=== PATIENT | male | born 1950 | race Caucasian/White ===

== ENCOUNTER 2017-03-27 05:40 | Observation (INO) | payer MEDICARE, BC ==
[2017-03-23 11:31] LABS: HEMOGLOBIN 14.4 g/dL (13.6-17.8)
[2017-03-23 11:42] LABS: BUN (BLOOD UREA NITROGEN) 17 MG/DL (6-23); CALCIUM, SERUM 9.2 MG/DL (8.5-10.4); CHLORIDE, SERUM 111 MMOL/L (96-112); CO2 (CARBON DIOXIDE) 26 MMOL/L (24-34); GFR AFRICAN AMERICAN 101 ML/MIN (>=60); GFR NON AFRICAN AMERICAN 87 ML/MIN (>=60); GLUCOSE, SERUM 103 MG/DL (60-99); POTASSIUM, SERUM 4.1 MMOL/L (3.5-5.3); SODIUM, SERUM 143 MMOL/L (135-148)
[2017-03-25 17:06] LABS: BASOPHILS ABSOLUTE 0.07 10/3/uL (0.0-0.16); EOSINOPHILS 2.8 %; EOSINOPHILS ABSOLUTE 0.19 10/3/uL (0.0-0.53); IMMATURE GRANULOCYTES 0.6 %; IMMATURE GRANULOCYTES ABSOLUTE 0.04 10/3/uL (0.0-0.11); LYMPHOCYTES 41.3 %; LYMPHOCYTES ABSOLUTE 2.85 10/3/uL (0.67-4.30); MEAN CORPUS HGB CONC 32.1 g/dL (32.0-36.0); MEAN CORPUSCULAR HEMOGLOB 28.7 pg (26.0-34.0); MEAN CORPUSCULAR VOLUME 89.2 fL (80-100); MONOCYTES 9.6 %; MONOCYTES ABSOLUTE 0.66 10/3/uL (0.21-1.20); NEUTROPHILS 44.7 %; NEUTROPHILS ABSOLUTE 3.09 10/3/uL (2.02-8.40); PLATELET COUNT 191 10/3/uL (150-400); RBC DISTRIBUTION WIDTH 15.4 % (12.0-16.0); RED CELL COUNT 5.02 10/6/uL (4.7-6.1); WHITE BLOOD CELLS 6.9 10/3/uL (4.5-10.5)
[2017-03-25 17:08] LABS: MANUAL DIFF NO %
--- NOTE | ~2017-03-27 | OP ---
Record Of Operation [facility] [address] [place] [place]. [address] NAME: TYRA ELAM : 46 STATUS : DIS Anna PAT#: [id number] AGE: 67 ADM/REG DATE : 03/27/17 MR#: [id number] REPORT SERV DATE: 03/30/17 DICTATED BY: ROCHELLE MARIA II DATE: 03/30/17 REPORT STATUS : Draft TRANSCRIBED BY: MODL DATE: 03/30/17 DATE OF PROCEDURE: 03/27/2017 PREOPERATIVE DIAGNOSES: 1. Lumbar stenosis, recurrent with remote history of lumbar laminectomy, multilevel. 2. Right L5-S1 herniated nucleus pulposus. 3. L3-5 stenosis. POSTOPERATIVE DIAGNOSES: 1. Lumbar stenosis, recurrent with remote history of lumbar laminectomy, multilevel. 2. Right L5-S1 herniated nucleus pulposus. 3. L3-5 stenosis. PROCEDURES: 1. Lumbar laminectomy, L3-4, L4-5 (revision). 2. Right L5-S1 revision and microdiskectomy. 3. Use of the microscope and stereotactic spinal imaging. SURGEON: Rochelle Maria M.D. FLUIDS REPLACED: 1300 mL LR. ESTIMATED BLOOD LOSS: 35 mL. DRAINS: One drain. COMPLICATIONS: None. ANTIBIOTIC: Preoperatively. PREOPERATIVE HISTORY: This is a friendly 67-year-old gentleman, who reports significant radiating pain into the right buttock, thigh, and occasionally below the leg. We discussed the pros and cons of surgery. He had an L3 to S1 surgery previously through a midline approach. We discussed the risks and benefits of the surgery, he wished to proceed. DESCRIPTION OF PROCEDURE: After informed consent was obtained, the patient was brought to the operating room at his request and general anesthesia achieved. He was placed in the prone position, and the back was prepped and draped in a sterile fashion. The stereotactic spinal pin was placed into the iliac crest on the left followed by completion of the intraoperative CT scan. Stereotactic guidance was then used throughout the remainder of the case. Next, a minimally invasive incision was performed on the right and the quadrant retractor placed. At this point, the microscope was brought into place and under microscopic visualization, the laminectomy was performed at L3-4. Again, the patient had a midline approach previously with a hemilaminectomy having been performed. There was some scarring Record Of Operation [facility] [address] [place]. [address] NAME: TYRA ELAM : 46 STATUS : DIS Anna PAT#: [id number] AGE: 67 ADM/REG DATE : 03/27/17 MR#: [id number] REPORT SERV DATE: 03/30/17 DICTATED BY: ROCHELLE MARIA II DATE: 03/30/17 REPORT STATUS : Draft TRANSCRIBED BY: MODL DATE: 03/30/17 in the midline. The revision decompression was now further performed with the high-speed bur and the Kerrison rongeurs and the curettes. The portions of the right facet were now removed approximating 30% of the joint. This allowed decompression of the L4 nerve root in the lateral recess. The L3 nerve root in the foraminal zone appeared to be without significant impingement. Next, we worked down to the L4-5 level where upon a similar procedure was performed. The spinal laminar junction was once again taken down and the decompression performed with the curettes and the Kerrison rongeurs. The L5 nerve root was identified as being significantly compressed in the lateral recess. This compression was now alleviated with removal of a portion of the facet. The L4 nerve root in the foraminal zone was without significant impingement. At this point, the right-sided laminotomy was performed at L5-S1. The ligamentum flavum was now removed and the S1 nerve root identified. There was a large disk osteophyte complex noted. We were unable to remove the majority of this as it was largely calcified. However, the laminotomy alone had now allowed the S1 nerve root to dorsally migrate. Irrigation was now performed followed by confirmation of hemostasis. A deep drain was placed secondary to mild cancellous bone bleeding. Standard closure was performed, and the patient was then extubated and transferred to PACU in stable condition. MARCUS/NAHUN Rochelle Maria II, M.D. / [id number] CC: Rosy Squires II, M.D. Ravi Chander, M.D. Dennis C. Ford MD
[~2017-03-27 05:40] MED LIST: ALLEGRA180 PO; C1 PO; D 5000 PO; FLOMAX4 PO; KLONO5 PO; LOP25 PO; MIRALAX POWDER1 PKT PO; NEUR800 PO; OXYCOD PO; PROAIR HFA INH; PROSCAR5 PO; TOPAMAX100 PO; VITAMIN D2000 UNIT PO; VITD PO; X5 PO; ZANTAC 150 PO; ZOCOR10 PO
[2017-03-27 07:13] LABS: INTERNATIONAL NORMAL RATI 1.3 UNITS (-); PROTIME (NOT ORD) 15.6 SEC (12.0-14.5)
[2017-03-28 07:10] LABS: INTERNATIONAL NORMAL RATI 1.1 UNITS (-); PROTIME (NOT ORD) 14.2 SEC (12.0-14.5)
[2017-03-28] MEDS ORDERED: OXYCON10 PO (10:29)
[2017-03-28] MEDS ORDERED: V5 PO (10:30)
[2017-03-28] MEDS ORDERED: MSCONT15 PO (10:31)
== END 2017-03-28 13:05 | disposition home or self-care (01) ==
LOC: SDC 05:40 → 3SO 11:34
PROVIDERS: Orthopaedic Surgery
PROC: 01NB0ZZ Release Lumbar Nerve, Open Approach (ICD-10-PCS; principal; 2017-03-27 06:45)
DX: M48.06 Spinal stenosis, lumbar region (principal); M51.27 Other intervertebral disc displacement, lumbosacral region; I48.91 Unspecified atrial fibrillation; I10 Essential (primary) hypertension; E78.00 Pure hypercholesterolemia, unspecified; F41.9 Anxiety disorder, unspecified; N40.0 Benign prostatic hyperplasia without lower urinary tract symptoms; Z88.1 Allergy status to other antibiotic agents; Z88.8 Allergy status to other drugs, medicaments and biological substances; Z87.442 Personal history of urinary calculi; Z92.21 Personal history of antineoplastic chemotherapy; Z85.72 Personal history of non-Hodgkin lymphomas; Z79.01 Long term (current) use of anticoagulants; Z79.891 Long term (current) use of opiate analgesic; Z79.899 Other long term (current) drug therapy; Z98.890 Other specified postprocedural states
CPT/HCPCS: 80048; 82962; 85014; 85018; 85025; 85610; 88304; 88311; 93005; 96374; 96375; 96376; 97116-GP; 97161-GP; A9270-GY; G0378; G8978-CK-GP; G8979-CK-GP; G8980-CJ-GP; J0690; J1030; J2250; J2405; J3010; J3370